=== PATIENT | male | born 1960 | race Caucasian/White ===

== ENCOUNTER 2019-02-03 11:23 | Inpatient (IN) | payer MEDICARE, OTHER ==
[2019-02-03 11:49] LABS: AADO2 Arterial 357.6 mmHg (7.0-24.0); Allen Test ACCEPTAB; Arterial Base Excess 1.5 mmol/L (-3.0-3); Arterial Blood Gas Oxygen Sat 98.2 mmHG (95.0-98.0); Arterial COHb 1.6 % (0.0-3.0); Arterial Fraction of Oxyhgb 96.4 % (93.0-99.0); Arterial HCO3 32.6 mmol/L (22.0-26.0); Arterial MetHb 0.2 % (0.0-1.5); Arterial pCO2 87.8 mmhg (35-45); MODE MASK - SIMPLE; Site Right Radial
[2019-02-03 11:57] LABS: ADD MAN DIFF? NO
[2019-02-03 12:07] LABS: ABNORMAL IP MESSAGE 1; BASOPHIL # 0.1 10^3/ul (0.0-0.1); BASOPHILS % 0.6 % (0.0-2.0); EOSINOPHILS % 0.4 % (0.0-7.0); HEMATOCRIT 44.1 % (42.0-52.0); HEMOGLOBIN 12.3 g/dl (14.0-18.0); LYMPHOCYTES # 0.8 10^3/ul (0.8-2.9); LYMPHOCYTES % 7.4 % (15.0-51.0); MEAN CORPUSCULAR HEMOGLOBIN 28.2 pg (29.0-33.0); MEAN CORPUSCULAR HGB CONC 27.9 g/dl (32.0-37.0); MEAN CORPUSCULAR VOLUME 101.1 fl (82.0-101.0); MEAN PLATELET VOLUME 12.1 fl (7.4-10.4); MONOCYTE # 0.7 10^3/ul (0.3-0.9); MONOCYTES % 6.7 % (0.0-11.0); NEUTROPHIL # 8.8 10^3/ul (1.6-7.5); NUCLEATED RED BLOOD CELLS% 0.2 /100WBC (0.0-0.0); PLATELET COUNT 167 10^3/UL (140-415); POSITIVE DIFF @See below; RED BLOOD COUNT 4.36 10^6/ul (4.70-6.10); RED CELL DISTRIBUTION WIDTH 17.8 % (11.5-14.5)
[2019-02-03 12:07] LABS: WHITE BLOOD COUNT 10.6 10^3/ul (4.8-10.8)
[2019-02-03] MEDS: CEFEPIME 2GM/50 ML (PMX) 50 ML IVPB (12:11)
[2019-02-03] MEDS: IPRATROPIUM (NEB) 0.5 MG/2.5 ML AMP INH (12:24)
[2019-02-03] MEDS: ALBUTEROL 0.5% (NEB) 2.5 MG/0.5 ML AMP INH (12:24)
[2019-02-03 12:26] LABS: ALANINE AMINOTRANSFERASE 22 IU/L (13-69); ALBUMIN 3.7 g/dl (3.3-4.9); ALBUMIN/GLOBULIN RATIO 0.78; ALKALINE PHOSPHATASE 171 IU/L (42-121); AMYLASE 94 U/L (11-123); ANION GAP 4 (5-13); ASPARTATE AMINO TRANSFERASE 39 IU/L (15-46); BILIRUBIN,INDIRECT 0.7 mg/dl (0-1.1); BILIRUBIN,TOTAL 0.7 mg/dl (0.2-1.3); BLOOD UREA NITROGEN 18 mg/dl (7-20); CALCIUM 8.1 mg/dl (8.4-10.2); CARBON DIOXIDE 37 mmol/L (21-31); CHLORIDE 96 mmol/L (97-110); CREATININE 0.78 mg/dl (0.61-1.24); Estimated GFR > 60 mL/min (>60); GLUCOSE 182 mg/dl (70-220); LIPASE 92 U/L (23-300); SODIUM 137 mmol/L (135-144); TOTAL PROTEIN 8.4 g/dl (6.1-8.1)
[2019-02-03 12:28] LABS: INR 0.99; PARTIAL THROMBOPLASTIN TIME 26.9 Sec (23.0-35.0); PROTIME 13.2 Sec (11.9-14.9)
[2019-02-03 12:34] LABS: B-TYPE NATRIURETIC PEPTIDE 1520 PG/ML (0-125)
[2019-02-03] MEDS: VANCOMYCIN 1 GM (PMX) 250 ML IVPB (12:48)
[2019-02-03 12:57] LABS: POTASSIUM 6.5 mmol/L (3.5-5.1)
[2019-02-03] MEDS: FUROSEMIDE 40 MG INJ IV ×2 (13:00→22:00)
[2019-02-03] MEDS ORDERED: ACETAMINOPHEN 325 MG TAB PO (13:30)
[2019-02-03] MEDS ORDERED: ONDANSETRON 4 MG INJ IV (13:30)
[2019-02-03 13:47] LABS: AADO2 Arterial 87.3 mmHg (7.0-24.0); Allen Test ACCEPTAB; Arterial Base Excess 4.1 mmol/L (-3.0-3); Arterial Blood Gas Oxygen Sat 93.7 mmHG (95.0-98.0); Arterial COHb 1.1 % (0.0-3.0); Arterial Fraction of Oxyhgb 92.6 % (93.0-99.0); Arterial HCO3 33.3 mmol/L (22.0-26.0); Arterial MetHb 0.1 % (0.0-1.5); Arterial pCO2 75.3 mmhg (35-45); Blood Gas IEPAP 20/8; Blood Gas PS 12; MODE MASK - BIPAP; Site Right Radial
[2019-02-03] MEDS ORDERED: NACL 0.9% 3 ML SYG IV (15:00)
[2019-02-03] MEDS ORDERED: INSULIN ASPART [NOVOLOG] 3 ML PEN SC (15:00)
[2019-02-03] MEDS ORDERED: VANCOMYCIN IV PER PHARMACY XX (15:00)
[2019-02-03 15:11] LABS: ADD UMIC YES; UR ASCORBIC ACID 40 mg/dL (NEGATIVE); UR BACTERIA FEW /HPF (NONE SEEN); UR BILIRUBIN (Dip) NEGATIVE (NEGATIVE); UR BLOOD (Dip) NEGATIVE (NEGATIVE); UR CLARITY SLIGHTLY CLOUDY (CLEAR); UR COLOR YELLOW (YELLOW); UR GLUCOSE (Dip) NEGATIVE (NEGATIVE); UR KETONES (Dip) NEGATIVE (NEGATIVE); UR LEUKOCYTE ESTERASE (Dip) 1+ Leu/ul (NEGATIVE); UR NITRITE (Dip) NEGATIVE (NEGATIVE); UR RBC 13 /HPF (0-5); UR TOTAL PROTEIN (Dip) 2+ mg/dl (NEGATIVE); UR UROBILINOGEN (Dip) NEGATIVE (NEGATIVE); UR WBC 23 /HPF (0-5)
[2019-02-03] MEDS ORDERED: hydrALAzine 20 MG INJ IV (15:30)
[2019-02-03 15:36] LABS: CHOL/HDL RATIO 3.4 RATIO; HDL CHOLESTEROL 45 mg/dl (28-71); LDL CHOLESTEROL,CALCULATED 86 mg/dl; TRIGLYCERIDES 121 mg/dl (0-149)
[2019-02-03 15:36] LABS: CHOLESTEROL 155 mg/dl (100-200)
[2019-02-03 15:37] LABS: MAGNESIUM 2.1 mg/dl (1.7-2.5)
[2019-02-03 15:45] LABS: B-TYPE NATRIURETIC PEPTIDE 1440 PG/ML (0-125)
[2019-02-03 15:53] LABS: FREE T4 (FREE THYROXINE) 0.73 ng/dl (0.64-1.79)
[2019-02-03] MEDS ORDERED: GLUCAGON 1 MG INJ IM (16:30)
[2019-02-03] MEDS ORDERED: GLUCOSE GEL 15 GRAM TUBE BUCCAL (16:30)
[2019-02-03] MEDS ORDERED: DEXTROSE 50% 50 ML SYRINGE IV ×2 (16:30)
[2019-02-03] MEDS ORDERED: GLUCOSE GEL 15 GRAM TUBE PO ×2 (16:30)
[2019-02-03 17:01] LABS: LACTIC ACID 1.7 mmol/L (0.5-2.0)
[2019-02-03 17:04] LABS: ANION GAP 4 (5-13); BLOOD UREA NITROGEN 19 mg/dl (7-20); CALCIUM 8.2 mg/dl (8.4-10.2); CARBON DIOXIDE 38 mmol/L (21-31); CHLORIDE 95 mmol/L (97-110); CREATININE 0.72 mg/dl (0.61-1.24); Estimated GFR > 60 mL/min (>60); GLUCOSE 124 mg/dl (70-220); POTASSIUM 5.6 mmol/L (3.5-5.1); SODIUM 137 mmol/L (135-144)
[2019-02-03 17:11] LABS: PROCALCITONIN 0.17 ng/mL (0.00-0.10)
[2019-02-03 17:34] LABS: AADO2 Arterial 65.5 mmHg (7.0-24.0); Allen Test ACCEPTAB; Arterial Base Excess 8.3 mmol/L (-3.0-3); Arterial Blood Gas Oxygen Sat 94.7 mmHG (95.0-98.0); Arterial Fraction of Oxyhgb 93.6 % (93.0-99.0); Arterial HCO3 35.7 mmol/L (22.0-26.0); Arterial MetHb 0.2 % (0.0-1.5); Arterial pCO2 63.5 mmhg (35-45); Blood Gas IEPAP 18/5; Blood Gas PS 13; MODE MASK - BIPAP; Site Right Radial
[2019-02-03] MEDS: ALBUTEROL/IPRATROPIUM (NEB) 3 ML AMP HHN ×2 (17:35→20:16)
[2019-02-03] MEDS: VANCOMYCIN HCL 2 GM in SOD CHLORIDE 0.9% 500 ML IVPB (20:00)
[2019-02-03] MEDS: VANCOMYCIN 1 GM in 250 ML IVPB (21:26)
[2019-02-03] MEDS: METHYLPREDNISOLONE 125 MG INJ IV (21:28)
[2019-02-03] MEDS: Insulin NOVOLOG SS MILD Algorithm (NPO/TPN/ENTERAL FEEDS) SC ×2 (21:32→21:50)
[2019-02-03] MEDS: METHYLPREDNISOLONE 40 MG INJ IV (21:59)
[2019-02-03] MEDS: ZOLPIDEM 5 MG TAB PO (22:00)
[2019-02-03] MEDS: HYDROCODONE/APAP (7.5/325) TAB PO (22:00)
[2019-02-03 22:24] LABS: LACTIC ACID 1.5 mmol/L (0.5-2.0)
[2019-02-04] MEDS: CEFEPIME 2GM/50 ML (PMX) 50 ML IVPB ×3 (00:15→20:51)
[2019-02-04] MEDS: Insulin NOVOLOG SS MILD Algorithm (NPO/TPN/ENTERAL FEEDS) SC ×6 (00:15→21:18)
[2019-02-04] MEDS: ALBUTEROL/IPRATROPIUM (NEB) 3 ML AMP HHN ×6 (01:30→20:06)
[2019-02-04] MEDS: VANCOMYCIN HCL 2 GM in SOD CHLORIDE 0.9% 500 ML IVPB (03:51)
[2019-02-04] MEDS: HYDROCODONE/APAP (7.5/325) TAB PO ×3 (05:31→23:30)
[2019-02-04 05:47] LABS: AADO2 Arterial 72.6 mmHg (7.0-24.0); Arterial Base Excess 6.5 mmol/L (-3.0-3); Arterial Blood Gas Oxygen Sat 95.6 mmHG (95.0-98.0); Arterial Fraction of Oxyhgb 94.4 % (93.0-99.0); Arterial HCO3 34.7 mmol/L (22.0-26.0); Arterial MetHb 0.3 % (0.0-1.5); Arterial pCO2 67.7 mmhg (35-45); MODE NASAL CANNULA; Site Left Radial
[2019-02-04 06:50] LABS: ADD MAN DIFF? NO
[2019-02-04 06:53] LABS: ABNORMAL IP MESSAGE 1; BASOPHILS % 0.4 % (0.0-2.0); EOSINOPHILS % 0.1 % (0.0-7.0); LYMPHOCYTES # 0.5 10^3/ul (0.8-2.9); MEAN CORPUSCULAR HGB CONC 28.6 g/dl (32.0-37.0); MEAN CORPUSCULAR VOLUME 97.9 fl (82.0-101.0); MEAN PLATELET VOLUME 12.7 fl (7.4-10.4); MONOCYTE # 0.2 10^3/ul (0.3-0.9); MONOCYTES % 2.1 % (0.0-11.0); NEUTROPHIL # 8.2 10^3/ul (1.6-7.5); PLATELET COUNT 145 10^3/UL (140-415); POSITIVE DIFF @See below; RED BLOOD COUNT 4.29 10^6/ul (4.70-6.10); RED CELL DISTRIBUTION WIDTH 18.2 % (11.5-14.5)
[2019-02-04 07:12] LABS: ALANINE AMINOTRANSFERASE 22 IU/L (13-69); ALBUMIN 3.3 g/dl (3.3-4.9); ALKALINE PHOSPHATASE 128 IU/L (42-121); ANION GAP 4 (5-13); ASPARTATE AMINO TRANSFERASE 33 IU/L (15-46); BILIRUBIN,INDIRECT 1.1 mg/dl (0-1.1); BILIRUBIN,TOTAL 1.1 mg/dl (0.2-1.3); BLOOD UREA NITROGEN 18 mg/dl (7-20); CARBON DIOXIDE 36 mmol/L (21-31); CHLORIDE 97 mmol/L (97-110); CREATININE 0.62 mg/dl (0.61-1.24); Estimated GFR > 60 mL/min (>60); GLUCOSE 192 mg/dl (70-220); POTASSIUM 5.9 mmol/L (3.5-5.1); SODIUM 137 mmol/L (135-144); TOTAL PROTEIN 7.4 g/dl (6.1-8.1)
[2019-02-04 07:13] LABS: PHOSPHORUS 3.9 mg/dl (2.5-4.9)
[2019-02-04 07:13] LABS: CREATINE KINASE 27 IU/L (23-200); MAGNESIUM 2.1 mg/dl (1.7-2.5)
[2019-02-04 07:22] LABS: CK INDEX 1.4; CK-MB 0.37 ng/ml (0.0-2.4); TROPONIN-I 0.024 ng/ml (0.000-0.120)
[2019-02-04] MEDS: METHYLPREDNISOLONE 40 MG INJ IV (10:16)
[2019-02-04] MEDS: ENOXAPARIN 40 MG/0.4 ML SYG SC (10:23)
[2019-02-04] MEDS ORDERED: IPRATROPIUM (NEB) 0.5 MG/2.5 ML AMP HHN (16:00)
[2019-02-04] MEDS: FUROSEMIDE 40 MG INJ IV (17:29)
[2019-02-04] MEDS: FAMOTIDINE 20 MG TAB PO (20:57)
[2019-02-04] MEDS: ZOLPIDEM 5 MG TAB PO (23:30)
[2019-02-05] MEDS: ALBUTEROL/IPRATROPIUM (NEB) 3 ML AMP HHN ×6 (01:09→20:07)
[2019-02-05] MEDS: Insulin NOVOLOG SS MILD Algorithm (NPO/TPN/ENTERAL FEEDS) SC ×5 (02:15→17:55)
[2019-02-05] MEDS: FUROSEMIDE 40 MG INJ IV ×2 (06:03→17:59)
[2019-02-05 06:13] LABS: ADD MAN DIFF? NO
[2019-02-05 06:27] LABS: BASOPHIL # 0.1 10^3/ul (0.0-0.1); BASOPHILS % 0.6 % (0.0-2.0); EOSINOPHILS # 0.1 10^3/ul (0.0-0.5); EOSINOPHILS % 0.8 % (0.0-7.0); HEMATOCRIT 40.2 % (42.0-52.0); HEMOGLOBIN 11.9 g/dl (14.0-18.0); LYMPHOCYTES # 1.1 10^3/ul (0.8-2.9); LYMPHOCYTES % 12.3 % (15.0-51.0); MEAN CORPUSCULAR HEMOGLOBIN 28.5 pg (29.0-33.0); MEAN CORPUSCULAR HGB CONC 29.6 g/dl (32.0-37.0); MEAN CORPUSCULAR VOLUME 96.4 fl (82.0-101.0); MEAN PLATELET VOLUME 12.9 fl (7.4-10.4); MONOCYTE # 0.7 10^3/ul (0.3-0.9); MONOCYTES % 7.7 % (0.0-11.0); PLATELET COUNT 138 10^3/UL (140-415); RED BLOOD COUNT 4.17 10^6/ul (4.70-6.10); RED CELL DISTRIBUTION WIDTH 18.2 % (11.5-14.5)
[2019-02-05 07:05] LABS: ALANINE AMINOTRANSFERASE 20 IU/L (13-69); ALBUMIN 3.2 g/dl (3.3-4.9); ALBUMIN/GLOBULIN RATIO 0.78; ALKALINE PHOSPHATASE 117 IU/L (42-121); ANION GAP 5 (5-13); ASPARTATE AMINO TRANSFERASE 33 IU/L (15-46); BILIRUBIN,INDIRECT 0.8 mg/dl (0-1.1); BILIRUBIN,TOTAL 0.8 mg/dl (0.2-1.3); BLOOD UREA NITROGEN 19 mg/dl (7-20); CARBON DIOXIDE 35 mmol/L (21-31); CHLORIDE 98 mmol/L (97-110); CREATININE 0.62 mg/dl (0.61-1.24); Estimated GFR > 60 mL/min (>60); GLUCOSE 111 mg/dl (70-220); MAGNESIUM 2.1 mg/dl (1.7-2.5); POTASSIUM 4.5 mmol/L (3.5-5.1); SODIUM 138 mmol/L (135-144); TOTAL PROTEIN 7.3 g/dl (6.1-8.1)
[2019-02-05] MEDS: CEFEPIME 2GM/50 ML (PMX) 50 ML IVPB (09:43)
[2019-02-05] MEDS: HYDROCODONE/APAP (7.5/325) TAB PO ×2 (09:45→12:35)
[2019-02-05] MEDS: ENOXAPARIN 40 MG/0.4 ML SYG SC (09:52)
[2019-02-05 09:53] LABS: ANISOCYTOSIS 1+ (0-0); BAND NEUTROPHILS #M 0.3 10^3/ul (0.0-0.6); BAND NEUTROPHILS % (M) 4 % (0-4); GIANT THROMBO% (M) 5 % (0-0); HYPOCHROMASIA 1+ (0-0); LYMPHOCYTES #M 1.1 10^3/ul (0.8-2.9); LYMPHOCYTES % (M) 13 % (15-51); MONOCYTE #M 0.3 10^3/ul (0.3-0.9); MONOCYTES % (M) 4 % (0-11); PLATELET ESTIMATE NORMAL; POLYCHROMASIA 2+ (0-0); REACTIVE LYMPHOCYTES% (M) 1 % (0-0); SEGMENTED NEUTROPHILS (M) % 78 % (39-77); SMUDGE%M 15 % (0-0)
== END 2019-02-05 20:47 | DRG 189 ==
LOC: E/R 11:23 → 6WM 13:22
PROC: 4A133R1 Monitoring of Arterial Saturation, Peripheral, Percutaneous Approach (ICD-10-PCS; principal; 2019-02-03)
PROC: 5A09457 Assistance with Respiratory Ventilation, 24-96 Consecutive Hours, Continuous Positive Airway Pressure (ICD-10-PCS; 2019-02-03)
DX: J96.21 Acute and chronic respiratory failure with hypoxia (principal); G92 Toxic encephalopathy; E66.2 Morbid (severe) obesity with alveolar hypoventilation; J44.0 Chronic obstructive pulmonary disease with (acute) lower respiratory infection; Z68.44 Body mass index [BMI] 60.0-69.9, adult; J96.22 Acute and chronic respiratory failure with hypercapnia; M06.9 Rheumatoid arthritis, unspecified; Z66 Do not resuscitate; E11.9 Type 2 diabetes mellitus without complications; E87.5 Hyperkalemia; D64.9 Anemia, unspecified; R62.7 Adult failure to thrive; E78.5 Hyperlipidemia, unspecified; I11.0 Hypertensive heart disease with heart failure; I50.9 Heart failure, unspecified; D69.6 Thrombocytopenia, unspecified; Z79.4 Long term (current) use of insulin
CPT/HCPCS: 36415; 36600; 71045; 80048; 80053; 80061; 81001; 82150; 82550; 82553; 82803; 82962; 83605; 83690; 83735; 83880; 84100; 84145; 84439; 84443; 84484; 85025; 85610; 85730; 86850; 86900; 86901; 87040-91; 87081; 87086; 92610; 93005; 93970; 94640; 94644; 94660; 94664; 96374; 96375; 99285-25